=== PATIENT | male | born 1960 | race Caucasian/White ===

== ENCOUNTER → 2020-11-22 13:06 | Outpatient (CLI) | payer SELFPAY ==
--- NOTE | 2020-11-22 13:17 | VDLE_ITS ---
Reason For Study: PVD, Right leg pain RIGHT LEFT CFV is compressible, spontaneous, phasic, GSV is normal. competent and demonstrates normal CFV is compressible, spontaneous, phasic, augmentation. competent, and demonstrates normal Procedure augmentation. This is a venous duplex using B-mode, color FV is compressible, spontaneous, phasic, flow and spectral Doppler. competent and demonstrates normal Exam performed in department. augmentation. A preliminary report was called and/or faxed POP V is compressible, spontaneous, phasic, to Valarie at [facility] office and RN at [facility] and demonstrates normal [facility] office. augmentation. T/P Trunk is compressible. PTV is compressible. Acute deep vein thrombosis is noted in the left Peroneal vein and Soleus vein. VL/Venous Duplex US, Unilateral Interpretation Summary Acute deep vein thrombosis is noted in the left peroneal vein. Acute deep vein thrombosis is noted in the left soleus vein. The remainder of the left lower extremity deep venous system is patent and compressible. Valvular competence appears intact within the proximal deep venou s system on the left . The left great saphenous vein appears patent and compressible segmentall y. Ordering Physician: Eliazar Roque Referring Physician: Cathleen Crowley Performed By: Claudette Persaud RVT
== END ==
PROVIDERS: PCP Nurse Practitioner Family; Referring Provider Podiatrist Foot & Ankle Surgery; Visit Provider Podiatrist Foot & Ankle Surgery
DX: M79.622 Pain in left upper arm (principal)
CPT/HCPCS: 93971